=== PATIENT | female | born 1945 | race Caucasian/White ===

== ENCOUNTER → 2020-04-27 | Outpatient (CLI) | payer MEDICARE, OTHER ==
[~2020-04-27] MED LIST: ASPIRIN 325MG325 MG PO; AZITHROMYCIN250 MG PO; CIPRO500 MG/5 M PO; DECADRON6 MG PO; HYDROXYCHLOROQ200 MG PO; OMNICEF 300 MG300 MG PO
== END ==
LOC: KOH-I 09:05
DX: I71.2 Thoracic aortic aneurysm, without rupture (principal); R91.8 Other nonspecific abnormal finding of lung field
CPT/HCPCS: 71250

== ENCOUNTER → 2020-04-29 | Outpatient (CLI) | payer MEDICARE | LOC: MAMO 02-29 10:00 | DX: Z12.31 Encounter for screening mammogram for malignant neoplasm of breast (principal) | CPT/HCPCS: 77063; 77067 ==

== ENCOUNTER → 2020-09-01 | Outpatient (CLI) | payer MEDICARE ==
[~2020-09-01] VITALS: Ht 167.6 cm; Wt 100.7 kg
== END ==
LOC: OPSV 12:00
DX: M81.0 Age-related osteoporosis without current pathological fracture (principal)
CPT/HCPCS: 96372

== ENCOUNTER → 2020-10-10 | Outpatient (CLI) | payer MEDICARE | LOC: EXRD 10:16 | DX: M19.042 Primary osteoarthritis, left hand (principal); M19.041 Primary osteoarthritis, right hand | CPT/HCPCS: 73130 ==

== ENCOUNTER → 2021-03-10 | Outpatient (CLI) | payer MEDICARE, OTHER | LOC: NM 07:26 | DX: I10 Essential (primary) hypertension (principal); I49.3 Ventricular premature depolarization; I49.9 Cardiac arrhythmia, unspecified; I77.819 Aortic ectasia, unspecified site; R07.9 Chest pain, unspecified | CPT/HCPCS: ECHO; 78452; 93017; 93306; A9502; J2785 ==

== ENCOUNTER → 2021-03-14 | Outpatient (CLI) | payer MEDICARE, OTHER | LOC: KOH-I 10:08 | DX: R07.81 Pleurodynia (principal) | CPT/HCPCS: 71101 ==

== ENCOUNTER 2021-04-05 14:49 | Emergency (ER) | payer MEDICARE, OTHER ==
[2021-04-05 15:29] LABS: HEMOGLOBIN 12.2 gm/dl (12.3-15.3); RED BLOOD COUNT 4.22 M/UL (4.00-5.10); WHITE BLOOD COUNT 11.5 K/UL (4.5-11.0)
[2021-04-05 16:39] LABS: BUN/CREATININE RATIO 11 (0-10)
[2021-04-05] MEDS ORDERED: KLOR-CON M2020 MEQ PO (20:15)
== END 2021-04-05 20:45 | disposition home or self-care (01) ==
LOC: ER1 14:49
PROVIDERS: Emergency Medicine
DX: R07.9 Chest pain, unspecified (principal); E87.6 Hypokalemia; Z20.822 Contact with and (suspected) exposure to COVID-19; K21.9 Gastro-esophageal reflux disease without esophagitis; E07.9 Disorder of thyroid, unspecified
CPT/HCPCS: 0240U; 36600; 71045; 80053; 81001; 82550; 82553; 82803; 83605; 83874; 83880; 84484; 85025; 87040; 93005; 99285; J7030; Q9965

== ENCOUNTER → 2021-05-25 | Outpatient (CLI) | payer MEDICARE, OTHER ==
[~2021-05-25] MED LIST changes: +KLOR-CON M2020 MEQ PO
== END ==
LOC: MAMO 05-10 09:00
DX: Z12.31 Encounter for screening mammogram for malignant neoplasm of breast (principal)
CPT/HCPCS: 77063; 77067

== ENCOUNTER → 2021-08-03 | Outpatient (CLI) | payer MEDICARE, OTHER ==
[2021-08-04 11:18] LABS: CREATININE, URINE 177.8 mg/dL (Not Estab.)
== END ==
LOC: US 13:28
PROVIDERS: Internal Medicine Nephrology
DX: N18.32 Chronic kidney disease, stage 3b (principal)
CPT/HCPCS: 36415; 80048; 81001; 82043; 82570; 84156

== ENCOUNTER → 2021-09-18 | Outpatient (CLI) | payer MEDICARE, OTHER | LOC: LAB 07:49 | PROVIDERS: Internal Medicine Nephrology | DX: E87.3 Alkalosis (principal) | CPT/HCPCS: 36415; 80048; 82803; 83735 ==

== ENCOUNTER → 2021-12-19 | Outpatient (CLI) | payer MEDICARE, OTHER ==
[2021-12-20 11:14] LABS: CREATININE, URINE 93.8 mg/dL (Not Estab.)
== END ==
LOC: LAB 06:47
PROVIDERS: Internal Medicine Nephrology
DX: N18.32 Chronic kidney disease, stage 3b (principal)
CPT/HCPCS: 36415; 80048; 82043; 82570